=== PATIENT | female | born 1980 | race Caucasian/White ===

== ENCOUNTER 2019-03-25 14:49 | Emergency (ER) | payer MEDICAID, OTHER ==
[2019-03-25] MEDS ORDERED: LIDOCAINE BUFFERED 1% 50 ML SOL SC ONE (15:45)
[2019-03-25] MEDS ORDERED: TDAP VACCINE 0.5 ML SUS IM ONE ×2 (15:45→16:02)
[2019-03-25] MEDS ORDERED: LIDOCAINE HCL 1% MDV 50 ML SOL SC ONE (15:50)
[2019-03-25] MEDS ORDERED: LIDOCAINE HCL 1% MPF 30 SOL ONE (15:51)
[2019-03-25 15:56] VITALS: RESP 18; TEMP 97.8
[2019-03-25] MEDS ORDERED: BACITRACIN 500 U/GM OIN TOP ONE ×2 (16:15→16:18)
[2019-03-25 17:54] VITALS: BP 97/67; PULSE 65; O2SAT 98
== END 2019-03-25 16:26 | disposition home or self-care (01) | DRG 605 ==
LOC: ED 14:49
DX: S61.211A Laceration without foreign body of left index finger without damage to nail, initial encounter (principal)
CPT/HCPCS: 12001; 90471; 90715; 99283; A9270-GY; J2001